=== PATIENT | female | born 1980 | race American Indian/Alaskan Native ===

== ENCOUNTER 2016-11-09 13:21 | Emergency (ER) | payer SELFPAY ==
--- NOTE | 2016-11-09 14:50 | Emergency Department Report ---
Chief Complaint: Syncope Stated Complaint: SYNCOPE/EMESIS BLOOD/PREG Time Seen by Provider: 11/09/16 14:40 - HPI History of Present Illness: Patient here reports that she had a positive home test 3 days ago. She reports that she's feeling weak and dizzy and that she fainted at the clinic this morning. Weakness and dizzy 3 days. She vomited 3 today. Denies any diarrhea. She is nauseous. Denies any fever and denies any pain. No Abdominal pain. Vaginal bleeding or discharge. Denies any urinary burning frequency or urgency. Menstrual period was 09/24/2016 - ROS Review of Systems: All systems are negative unless stated in HPI above. - Exam Vital Signs: Vital Signs 11/09/16 14:24 Temperature 97.3 F L Pulse Rate 68 Respiratory 16 Rate Blood Pressure 111/76 O2 Sat by Pulse 100 Oximetry Physical Exam: Gen: This is a 35-year-old female well-nourished well-developed in no acute distress. LUNGS: CTAB. Normal work of breathing CV:S1S2. RRR GI:NTTP in all Quadrants. NL bowel sounds in all quadrants. no cva tenderness. MSE screening note: Focused history and physical exam performed. Due to findings the following was ordered:see mdm ED Medical Decision Making - Medical Decision Making Medical decision making: Patient seen by provider in triage area. Appropriate protocol activated and patient to main ED to be seen by physician. ED Disposition for MSE Condition: Stable
[2016-11-09 15:16] LABS: Basophils % (Auto) 0.5 % (0.0-1.8); Eosinophils % (Auto) 0.8 % (0.0-4.3); Hemoglobin 10.2 gm/dl (10.1-14.3); Mean Corpuscular HGB Conc 31 % (30-34); Mean Corpuscular Volume 72 fl (79-97); Platelet Count 375 K/mm3 (140-440); Red Blood Count 4.61 M/mm3 (3.65-5.03); White Blood Count 7.5 K/mm3 (4.5-11.0)
[2016-11-09 15:21] LABS: Mean Corpuscular Hemoglobin 22 pg (28-32); Red Cell Distribution Width 20.9 % (13.2-15.2)
[2016-11-09 15:34] LABS: Alanine Aminotransferase 8 units/L (7-56); Albumin 4.2 g/dL (3.9-5); Alkaline Phosphatase 86 units/L (35-129); Bilirubin,Total 0.4 mg/dL (0.1-1.2); Blood Urea Nitrogen 8 mg/dL (7-17); Calcium 9.5 mg/dL (8.4-10.2); Carbon Dioxide 19 mmol/L (22-30); Chloride 94.3 mmol/L (98-107); Glucose 77 mg/dL (65-100); Potassium 3.8 mmol/L (3.6-5.0); Sodium 135 mmol/L (137-145); Total Protein 8.5 g/dL (6.3-8.2)
[2016-11-09 15:37] LABS: Anion Gap 26 mmol/L
[2016-11-09 16:26] LABS: Bacteria,Urine 1+ /HPF (Negative); Bilirubin,Urine NEG (Negative); Blood,Urine NEG (Negative); Ketones,Urine 80 mg/dL (Negative); Leukocyte Esterase,Urine NEG (Negative); Mucus,Urine FEW /HPF; Nitrite,Urine NEG (Negative); Urobilinogen,Urine < 2.0 mg/dL (<2.0); WBC,Urine < 1.0 /HPF (0.0-6.0)
--- NOTE | 2016-11-09 20:34 | Emergency Department Report ---
ED General Adult HPI - General Chief complaint: Syncope Stated complaint: SYNCOPE/EMESIS BLOOD/PREG Time Seen by Provider: 11/09/16 14:49 Source: patient, RN notes reviewed Mode of arrival: Wheelchair Limitations: No Limitations - History of Present Illness Initial comments: This is a 35-year-old female, previously unknown to me. She is 7, para 1. Last menstrual period is November 01. Patient denies chronic medical conditions. She admits to recreational consumption of marijuana. She last consumed marijuana on November 01, which is when she found out she was . Patient presents to the ER complaining of syncope, and loss of consciousness. It started at 1:00 this afternoon, and was sudden. Patient reports that the past 4-5 days, she has had intractable nausea and vomiting, and inability to tolerate liquid and solid feeds. She reports an unintentional weight loss. Prior to the event, she denies chest pain, shortness of breath, headache, neck pain. She is not certain if she hit her head. She is still nauseous. There is no abdominal pain. There is no chest pain. There is no leg pain. There is no leg swelling. No recent trips greater than 4 hours. No recent hospital admissions. No vaginal bleeding. No shortness of breath. -: Sudden Severity scale (0 -10): 8 Consistency: now resolved Improves with: none Worsens with: none Associated Symptoms: loss of appetite, malaise, nausea/vomiting, syncope, weakness. denies: chest pain, cough, fever/chills, headaches - Related Data Previous Rx's Medication Instructions Recorded Last Taken Type Doxylamine/Pyridoxine HCl 1 each PO QHS PRN #30 tablet. 11/10/16 Unknown Rx [Leonardo Grant 10-10 mg Tablet] Vit W-Ca,Fe,FA(<1 mg) 1 each PO QDAY #30 tablet 11/10/16 Unknown Rx [ Vitamins] Allergies Allergy/AdvReac Type Severity Reaction Status Date / Time No Known Allergies Allergy Verified 11/09/16 14:21 ED Review of Systems ROS: Stated complaint: SYNCOPE/EMESIS BLOOD/PREG Other details as noted in HPI Constitutional: malaise. denies: fever Eyes: denies: vision change ENT: denies: epistaxis Respiratory: see HPI Cardiovascular: syncope. denies: chest pain Gastrointestinal: nausea, vomiting Genitourinary: denies: dysuria Musculoskeletal: as per HPI Skin: as per HPI Neurological: as per HPI Psychiatric: as per HPI ED Past Medical Hx - Past Medical History Previous Medical History?: No - Surgical History Additional Surgical History: x1, D&Cx2 - Social History Smoking Status: Never Smoker Substance Use Type: None - Medications Home Medications: Home Medications Medication Instructions Recorded Confirmed Last Taken Type Doxylamine/Pyridoxine HCl 1 each PO QHS PRN #30 tablet. 11/10/16 Unknown Rx [Diclegis Dr 10-10 mg Tablet] Vit W-Ca,Fe,FA(<1 mg) 1 each PO QDAY #30 tablet 11/10/16 Unknown Rx [ Vitamins] ED Physical Exam - General Limitations: No Limitations General appearance: alert, in no apparent distress - Head Head exam: Present: atraumatic, normocephalic - Eye Eye exam: Present: normal appearance, EOMI. Absent: nystagmus - ENT ENT exam: Present: normal exam, normal orophraynx, mucous membranes moist, TM's normal bilaterally, normal external ear exam - Neck Neck exam: Present: normal inspection, full ROM. Absent: tenderness, meningismus - Respiratory Respiratory exam: Present: normal lung sounds bilaterally. Absent: respiratory distress, wheezes, rales, rhonchi, stridor, chest wall tenderness - Cardiovascular Cardiovascular Exam: Present: regular rate, normal rhythm, normal heart sounds. Absent: bradycardia, tachycardia, irregular rhythm, systolic murmur, diastolic murmur, rubs, gallop - GI/Abdominal GI/Abdominal exam: Present: soft, normal bowel sounds. Absent: distended, tenderness, guarding, rebound, rigid, pulsatile mass - Extremities Exam Extremities exam: Present: normal inspection, full ROM, normal capillary refill. Absent: tenderness, pedal edema, joint swelling, calf tenderness - Back Exam Back exam: Present: normal inspection, full ROM. Absent: tenderness, CVA tenderness (R), CVA tenderness (L), muscle spasm, paraspinal tenderness, vertebral tenderness - Neurological Exam Neurological exam: Present: alert, oriented X3, normal gait ( There is no pass pointing. Normal [id number]. Negative pronator drift.), other (Extraocular movements intact. Tongue midline. No facial droop. Facial sensation intact to light touch in the V1, V2, V3 distribution bilaterally. 5 and 5 strength in 4 extremities.. Sensation is intact to light touch in 4 extremities.). Absent : motor sensory deficit - Psychiatric Psychiatric exam: Present: normal affect, normal mood - Skin Skin exam: Present: warm, dry, intact, normal color. Absent: rash ED Course Vital Signs 11/09/16 11/09/16 11/09/16 14:24 17:56 19:06 Temperature 97.3 F L Pulse Rate 68 66 Respiratory 16 16 Rate Blood Pressure 111/76 Blood Pressure 111/64 [Left] O2 Sat by Pulse 100 100 100 Oximetry 11/09/16 11/09/16 11/09/16 19:07 19:11 19:15 Temperature Pulse Rate Respiratory Rate Blood Pressure 126/75 126/75 113/66 Blood Pressure [Left] O2 Sat by Pulse 100 100 Oximetry 11/09/16 11/09/16 11/09/16 19:21 19:23 19:25 Temperature Pulse Rate Respiratory Rate Blood Pressure 113/66 113/66 113/66 Blood Pressure [Left] O2 Sat by Pulse 100 100 100 Oximetry 11/09/16 11/09/16 11/09/16 19:30 19:35 19:41 Temperature Pulse Rate Respiratory Rate Blood Pressure 115/76 126/75 126/75 Blood Pressure [Left] O2 Sat by Pulse 100 99 Oximetry 11/09/16 11/09/16 11/09/16 19:45 19:51 19:55 Temperature Pulse Rate Respiratory Rate Blood Pressure 125/74 125/74 125/74 Blood Pressure [Left] O2 Sat by Pulse 100 100 100 Oximetry 11/09/16 11/09/16 11/09/16 20:00 20:05 20:11 Temperature Pulse Rate Respiratory Rate Blood Pressure 131/65 113/66 113/66 Blood Pressure [Left] O2 Sat by Pulse 100 100 100 Oximetry 11/09/16 11/09/16 11/09/16 20:15 20:21 20:25 Temperature Pulse Rate Respiratory Rate Blood Pressure 123/66 123/66 123/66 Blood Pressure [Left] O2 Sat by Pulse 100 100 100 Oximetry 11/09/16 11/09/16 11/09/16 20:37 20:41 20:45 Temperature Pulse Rate Respiratory Rate Blood Pressure 131/65 131/65 131/65 Blood Pressure [Left] O2 Sat by Pulse 100 100 100 Oximetry 11/09/16 11/09/16 11/09/16 20:51 20:55 21:01 Temperature Pulse Rate Respiratory Rate Blood Pressure 131/65 131/65 131/65 Blood Pressure [Left] O2 Sat by Pulse 100 100 100 Oximetry 11/09/16 11/09/16 11/09/16 21:05 21:11 21:15 Temperature Pulse Rate Respiratory Rate Blood Pressure 123/66 123/66 123/66 Blood Pressure [Left] O2 Sat by Pulse 100 100 100 Oximetry 11/09/16 11/09/16 11/09/16 21:21 21:25 21:31 Temperature Pulse Rate 83 Respiratory Rate Blood Pressure 123/66 123/66 123/66 Blood Pressure [Left] O2 Sat by Pulse 100 100 100 Oximetry 11/09/16 11/09/16 11/09/16 21:35 21:41 21:45 Temperature Pulse Rate Respiratory Rate Blood Pressure 123/66 123/66 123/66 Blood Pressure [Left] O2 Sat by Pulse 83 L 99 100 Oximetry 11/09/16 11/09/16 11/09/16 21:51 21:55 22:01 Temperature Pulse Rate Respiratory Rate Blood Pressure 123/66 123/66 123/66 Blood Pressure [Left] O2 Sat by Pulse 100 99 100 Oximetry 11/09/16 11/09/16 11/09/16 22:05 22:10 22:17 Temperature Pulse Rate Respiratory Rate Blood Pressure 123/66 123/66 123/66 Blood Pressure [Left] O2 Sat by Pulse 100 100 100 Oximetry 11/09/16 22:21 Temperature Pulse Rate Respiratory Rate Blood Pressure 123/66 Blood Pressure [Left] O2 Sat by Pulse 99 Oximetry - Reevaluation(s) Reevaluation #1: 11/09/16 21:50 Differential diagnosis: Nausea and vomiting of , hyperemesis gravidarum , arrhythmia, pulmonary embolus, nausea and vomiting related to cannabis use, ectopic Assessment and plan: 35-year-old female with sudden episode of syncope. I think the most likely etiology for the patient's episode is nausea and vomiting , and relative volume depletion. She is clinically sober now, with a GCS of 15 , and an NIH score of 0.Patient is clinically sober at this time. The cervical spine is cleared through nexus and togolese c spine rule There is no chest pain, there is no shortness of breath, and beside her being , there are no pulmonary embolus or DVT risk factors. She is resting comfortably at this time. Transabdominal/transvaginal ultrasound are ordered. D-dimer is ordered. Urine toxicology screen demonstrates presence of marijuana, but patient is clinically sober, and reports she has not consumed marijuana since November 01. Her EKG is morphologically abnormal without prior for comparison. Given her numerous T-wave abnormalities, a d-dimer is currently pending. However, I find the patient to be low risk by well's criteria. I have discussed her abnormal EKG with the weatherization field technician iron miner, Dr. Gallegos. Dr. Gallegos states the patient can follow-up in the office in the next few days for her abnormal EKG, assuming her ER workup is unremarkable. No lower abdominal pain, no lower abdominal rebound, guarding or tenderness. Therefore do not think the patient requires a pelvic exam. Ultrasound is pending. Reevaluation #2: 11/10/16 01:22 Patient's d-dimer is negative. I have reassessed the patient multiple times while she has been in the emergency department. No episodes of syncope. No episodes of vomiting. She feels much improved. Ultrasound demonstrates appropriate intrauterine . Of note, the patient had a prolonged stay in the emergency department because it took a very long time for ultrasound to be performed, and for her ultrasound interpreted. Nevertheless, I believe she is suitable for discharge at this time. She will be started on vitamins and as needed nausea medication. She is instructed to discontinue marijuana consumption, follow-up with TECHNOLOGY LAB TEACHER, follow-up with cardiology. Return precautions are extensively reviewed. ED Medical Decision Making - Lab Data Result diagrams: 11/09/16 14:57 11/09/16 14:57 Vital Signs 11/09/16 11/09/16 11/09/16 14:24 17:56 19:06 Temperature 97.3 F L Pulse Rate 68 66 Respiratory 16 16 Rate Blood Pressure 111/76 Blood Pressure 111/64 [Left] O2 Sat by Pulse 100 100 100 Oximetry 11/09/16 11/09/16 11/09/16 19:11 19:15 19:21 Temperature Pulse Rate Respiratory Rate Blood Pressure 126/75 113/66 113/66 Blood Pressure [Left] O2 Sat by Pulse 100 100 100 Oximetry 11/09/16 21:31 Temperature Pulse Rate 83 Respiratory Rate Blood Pressure Blood Pressure [Left] O2 Sat by Pulse Oximetry Lab Results 11/09/16 11/09/16 11/09/16 Range/Units 14:32 14:57 14:57 WBC 7.5 (4.5-11.0) K/mm3 RBC 4.61 (3.65-5.03) M/mm3 Hgb 10.2 (10.1-14.3) gm/dl Hct 33.0 (30.3-42.9) % MCV 72 L (79-97) fl MCH 22 L (28-32) pg MCHC 31 (30-34) % RDW 20.9 H (13.2-15.2) % Plt Count 375 (140-440) K/mm3 Lymph % (Auto) 15.1 (13.4-35.0) % [place] % (Auto) 9.5 H (0.0-7.3) % Eos % (Auto) 0.8 (0.0-4.3) % Baso % (Auto) 0.5 (0.0-1.8) % Lymph # 1.1 L (1.2-5.4) K/mm3 [place] # 0.7 (0.0-0.8) K/mm3 Eos # 0.1 (0.0-0.4) K/mm3 Baso # 0.0 (0.0-0.1) K/mm3 Seg Neutrophils % 74.1 H (40.0-70.0) % Seg Neutrophils # 5.6 (1.8-7.7) K/mm3 PT (12.2-14.9) Sec. INR (0.87-1.13) D-Dimer (0-234) ng/mlDDU Sodium 135 L (137-145) mmol/L Potassium 3.8 (3.6-5.0) mmol/L Chloride 94.3 L (98-107) mmol/L Carbon Dioxide 19 L (22-30) mmol/L Anion Gap 26 mmol/L BUN 8 (7-17) mg/dL Creatinine 0.5 L (0.7-1.2) mg/dL Estimated GFR > 60 ml/min BUN/Creatinine Ratio 16.00 % Glucose 77 (65-100) mg/dL POC Glucose 65 L (70-105) Calcium 9.5 (8.4-10.2) mg/dL Total Bilirubin 0.4 (0.1-1.2) mg/dL AST 15 (5-40) units/L ALT 8 (7-56) units/L Alkaline Phosphatase 86 (35-129) units/L Total Protein 8.5 H (6.3-8.2) g/dL Albumin 4.2 (3.9-5) g/dL Albumin/Globulin Ratio 1.0 % HCG, Qual (Negative) Urine Color (Yellow) Urine Turbidity (Clear) Urine pH (5.0-7.0) Ur Specific [place] (1.003-1.030) Urine Protein (Negative) mg/dL Urine Glucose (UA) (Negative) mg/dL Urine Ketones (Negative) mg/dL Urine Blood (Negative) Urine Nitrite (Negative) Urine Bilirubin (Negative) Urine Urobilinogen (<2.0) mg/dL Ur Leukocyte Esterase (Negative) Urine WBC (Auto) (0.0-6.0) /HPF Urine RBC (Auto) (0.0-6.0) /HPF U Epithel Cells (Auto) (0-13.0) /HPF Urine Bacteria (Auto) (Negative) /HPF Urine Mucus /HPF U Marijuana (THC) Screen 11/09/16 11/09/16 11/09/16 Range/Units 14:57 16:07 16:07 WBC (4.5-11.0) K/mm3 RBC (3.65-5.03) M/mm3 Hgb (10.1-14.3) gm/dl Hct (30.3-42.9) % MCV (79-97) fl MCH (28-32) pg MCHC (30-34) % RDW (13.2-15.2) % Plt Count (140-440) K/mm3 Lymph % (Auto) (13.4-35.0) % [place] % (Auto) (0.0-7.3) % Eos % (Auto) (0.0-4.3) % Baso % (Auto) (0.0-1.8) % Lymph # (1.2-5.4) K/mm3 [place] # (0.0-0.8) K/mm3 Eos # (0.0-0.4) K/mm3 Baso # (0.0-0.1) K/mm3 Seg Neutrophils % (40.0-70.0) % Seg Neutrophils # (1.8-7.7) K/mm3 PT (12.2-14.9) Sec. INR (0.87-1.13) D-Dimer (0-234) ng/mlDDU Sodium (137-145) mmol/L Potassium (3.6-5.0) mmol/L Chloride (98-107) mmol/L Carbon Dioxide (22-30) mmol/L Anion Gap mmol/L BUN (7-17) mg/dL Creatinine (0.7-1.2) mg/dL Estimated GFR ml/min BUN/Creatinine Ratio % Glucose (65-100) mg/dL POC Glucose (70-105) Calcium (8.4-10.2) mg/dL Total Bilirubin (0.1-1.2) mg/dL AST (5-40) units/L ALT (7-56) units/L Alkaline Phosphatase (35-129) units/L Total Protein (6.3-8.2) g/dL Albumin (3.9-5) g/dL Albumin/Globulin Ratio % HCG, Qual Positive (Negative) Urine Color Yellow (Yellow) Urine Turbidity Clear (Clear) Urine pH 6.0 (5.0-7.0) Ur Specific [place] 1.026 (1.003-1.030) Urine Protein 100 mg/dl (Negative) mg/dL Urine Glucose (UA) Neg (Negative) mg/dL Urine Ketones 80 (Negative) mg/dL Urine Blood Neg (Negative) Urine Nitrite Neg (Negative) Urine Bilirubin Neg (Negative) Urine Urobilinogen < 2.0 (<2.0) mg/dL Ur Leukocyte Esterase Neg (Negative) Urine WBC (Auto) < 1.0 (0.0-6.0) /HPF Urine RBC (Auto) 5.0 (0.0-6.0) /HPF U Epithel Cells (Auto) 9.0 (0-13.0) /HPF Urine Bacteria (Auto) 1+ (Negative) /HPF Urine Mucus Few /HPF U Marijuana (THC) Screen Presumptive positive 11/09/16 11/09/16 Range/Units 20:52 20:52 WBC (4.5-11.0) K/mm3 RBC (3.65-5.03) M/mm3 Hgb (10.1-14.3) gm/dl Hct (30.3-42.9) % MCV (79-97) fl MCH (28-32) pg MCHC (30-34) % RDW (13.2-15.2) % Plt Count (140-440) K/mm3 Lymph % (Auto) (13.4-35.0) % [place] % (Auto) (0.0-7.3) % Eos % (Auto) (0.0-4.3) % Baso % (Auto) (0.0-1.8) % Lymph # (1.2-5.4) K/mm3 [place] # (0.0-0.8) K/mm3 Eos # (0.0-0.4) K/mm3 Baso # (0.0-0.1) K/mm3 Seg Neutrophils % (40.0-70.0) % Seg Neutrophils # (1.8-7.7) K/mm3 PT 13.1 (12.2-14.9) Sec. INR 1.00 (0.87-1.13) D-Dimer < 135 (0-234) ng/mlDDU Sodium (137-145) mmol/L Potassium (3.6-5.0) mmol/L Chloride (98-107) mmol/L Carbon Dioxide (22-30) mmol/L Anion Gap mmol/L BUN (7-17) mg/dL Creatinine (0.7-1.2) mg/dL Estimated GFR ml/min BUN/Creatinine Ratio % Glucose (65-100) mg/dL POC Glucose (70-105) Calcium (8.4-10.2) mg/dL Total Bilirubin (0.1-1.2) mg/dL AST (5-40) units/L ALT (7-56) units/L Alkaline Phosphatase (35-129) units/L Total Protein (6.3-8.2) g/dL Albumin (3.9-5) g/dL Albumin/Globulin Ratio % HCG, Qual (Negative) Urine Color (Yellow) Urine Turbidity (Clear) Urine pH (5.0-7.0) Ur Specific [place] (1.003-1.030) Urine Protein (Negative) mg/dL Urine Glucose (UA) (Negative) mg/dL Urine Ketones (Negative) mg/dL Urine Blood (Negative) Urine Nitrite (Negative) Urine Bilirubin (Negative) Urine Urobilinogen (<2.0) mg/dL Ur Leukocyte Esterase (Negative) Urine WBC (Auto) (0.0-6.0) /HPF Urine RBC (Auto) (0.0-6.0) /HPF U Epithel Cells (Auto) (0-13.0) /HPF Urine Bacteria (Auto) (Negative) /HPF Urine Mucus /HPF U Marijuana (THC) Screen - EKG Data When compared to previous EKG there are: previous EKG unavailable 11/09/16 21:54 Normal sinus, 66 bpm, normal axis, normal intervals, T-wave inversions, 2, 3, V2 , V3, V4, V5 and V6. Abnormal EKG, not morphologically consistent with STEMI. Patient not having chest pain. - Radiology Data Radiology results: report reviewed, image reviewed ultrasound demonstrates appropriate intrauterine , fibroid uterus Critical care attestation.: If time is entered above; I have spent that time in minutes in the direct care of this critically ill patient, excluding procedure time. ED Disposition Clinical Impression: Disposition: DISCHARGED TO HOME OR SELFCARE Is pt being admited?: No Does the pt Need Aspirin: No Condition: Stable Instructions: Syncope (ED), Hyperemesis Gravidarum (ED) Additional Instructions: Discontinue consumption of marijuana. It is bad for your health. Take the vitamins, nausea medication as directed. EKG demonstrated nonspecific abnormalities. I recommend that you follow-up with a weatherization field technician within the next 3-[address] Gallegos is a local weatherization field technician. You may contact her office tomorrow at [phone]. I recommend that you do not drive cars or operate motor vehicles until cleared by either primary care doctor or cardiology. Take the nausea medication, vitamins as directed. Follow up with an OB /WRISTER doctor within the next week. Dr. Hein is a local TECHNOLOGY LAB TEACHER doctor. Return to the ER right away with pain, intractable nausea or vomiting, fevers or chills, inability to tolerate liquid feeds. Follow up with an TECHNOLOGY LAB TEACHER doctor within the next week. Prescriptions: Doxylamine/Pyridoxine HCl [Leonardo Grant 10-10 mg Tablet] 1 each PO QHS PRN #30 tablet. PRAdriana Reason: Nausea Vit W-Ca,Fe,FA(<1 mg) [ Vitamins] 1 each PO QDAY #30 tablet Referrals: PRIMARY CARE, [Primary Care Provider] - 3-5 Days BEN GALLEGOS MD [Staff Physician] - 3-5 Days RAMON HEIN MD [Staff Physician] - 3-5 Days
[2016-11-09] MEDS ORDERED: ZOFRAN IV ONE (21:08)
[2016-11-09 21:33] LABS: Urine Drugs of Abuse Note Disclamer
[2016-11-09] MEDS ORDERED: D5/0.45NS 1,000 ML IV SCH (22:00)
[2016-11-09 22:29] VITALS: BP 123/66
--- NOTE | 2016-11-10 00:41 | Ultrasound Report ---
FINAL REPORT EXAM: US OB TRANSVAGINAL HISTORY: syncope TECHNIQUE: Transabdominal and transvaginal sonography of the pelvis. PRIORS: None. FINDINGS: There is a single, live intrauterine . Ultrasound estimated gestational age is 7 weeks 1 day. Ultrasound estimated date of delivery is 27 June 2017. heart motion is detected. Uterus enlarged and contains multiple fibroids, largest partially calcified and located in the right corpus region measuring 4.7 x 4.3 cm. Remainder of uterus and adnexa are grossly unremarkable. IMPRESSION: 1. Single, live intrauterine . 2. Leiomyomatous change in the uterus.
--- NOTE | 2016-11-10 00:42 | Ultrasound Report ---
FINAL REPORT EXAM: US OB < = 14 WEEKS FETUS HISTORY: syncope TECHNIQUE: Transabdominal and transvaginal sonography of the pelvis. PRIORS: None. FINDINGS: There is a single, live intrauterine . Ultrasound estimated gestational age is 7 weeks 1 day. Ultrasound estimated date of delivery is 27 June 2017. heart motion is detected. Uterus enlarged and contains multiple fibroids, largest partially calcified and located in the right corpus region measuring 4.7 x 4.3 cm. Remainder of uterus and adnexa are grossly unremarkable. IMPRESSION: 1. Single, live intrauterine . 2. Leiomyomatous change in the uterus.
== END 2016-11-10 01:32 | disposition home or self-care (01) ==
LOC: ED 13:21
DX: O21.0 Mild hyperemesis gravidarum (principal); O26.891 Other specified pregnancy related conditions, first trimester; R55 Syncope and collapse; R53.81 Other malaise; R11.0 Nausea; Z3A.01 Less than 8 weeks gestation of pregnancy; Z98.890 Other specified postprocedural states
CPT/HCPCS: 36415; 76801; 76817; 80053; 81001; 82962; 83735; 84484; 84702; 84703; 85025; 85379; 85610; 86850; 86900; 86901; 93005; 93010; 96361; 96374; 99284; G0479; J2405; 80307

== ENCOUNTER 2017-02-16 13:05 | Outpatient (CLI) | payer MEDICAID ==
[2017-02-16 14:50] LABS: Bilirubin,Urine NEG (Negative); Blood,Urine SM (Negative); Ketones,Urine NEG (Negative); Leukocyte Esterase,Urine NEG (Negative); Nitrite,Urine NEG (Negative); Protein,Urine <15 mg/dL mg/dL (Negative); Urobilinogen,Urine < 2.0 mg/dL (<2.0); WBC,Urine < 1.0 /HPF (0.0-6.0)
[2017-02-16] MEDS ORDERED: LACTATED RINGERS 500 ML IV ONE (15:13)
[2017-02-16] MEDS ORDERED: TYLENOL #3 PO PRN (15:17)
--- NOTE | 2017-02-19 07:38 | Ultrasound Report ---
ULTRASOUND OB LIMITED History: Unable to identify heart tones Technique: Transabdominal ultrasound with Doppler interrogation. Gestation: Single Position: Transverse, head to maternal left Heart Rate: 158 BPM Comment: Multiple large uterine fibroids are identified measuring up to 7 cm in diameter.
== END 2017-02-16 15:56 | disposition home or self-care (01) ==
LOC: TRG 13:05
PROVIDERS: ATTEND Obstetrics & Gynecology
DX: O09.522 Supervision of elderly multigravida, second trimester (principal); O47.02 False labor before 37 completed weeks of gestation, second trimester; Z3A.21 21 weeks gestation of pregnancy
CPT/HCPCS: 76815; 81001

== ENCOUNTER 2017-05-11 13:35 | Outpatient (CLI) | payer MEDICAID ==
[2017-05-11 15:12] VITALS: BP 117/66
[2017-05-11 15:35] LABS: Bacteria,Urine 1+ /HPF (Negative); Bilirubin,Urine NEG (Negative); Blood,Urine NEG (Negative); Ketones,Urine NEG (Negative); Leukocyte Esterase,Urine NEG (Negative); Mucus,Urine FEW /HPF; Nitrite,Urine NEG (Negative); Protein,Urine <15 mg/dL mg/dL (Negative); Urobilinogen,Urine < 2.0 mg/dL (<2.0)
[2017-05-11] MEDS ORDERED: LACTATED RINGERS 500 ML IV ONE (16:00)
== END 2017-05-11 16:50 | disposition home or self-care (01) ==
LOC: TRG 13:35
PROVIDERS: ATTEND Obstetrics & Gynecology
DX: O09.523 Supervision of elderly multigravida, third trimester (principal); O47.03 False labor before 37 completed weeks of gestation, third trimester; Z3A.31 31 weeks gestation of pregnancy
CPT/HCPCS: 59025; 81001

== ENCOUNTER 2017-06-22 22:48 | Inpatient (IN) | payer MEDICAID ==
[2017-06-23] MEDS ORDERED: LACTATED RINGERS 1,000 ML ONE (00:14)
[2017-06-23] MEDS ORDERED: AMBIEN PO PRN (01:16)
[2017-06-23] MEDS ORDERED: LACTATED RINGERS 1,000 ML IV SCH (01:16)
[2017-06-23] MEDS ORDERED: SUBLIMAZE IV ONE (01:16)
[2017-06-23 01:33] LABS: Hematocrit 35.5 % (30.3-42.9); Hemoglobin 11.8 gm/dl (10.1-14.3); Mean Corpuscular HGB Conc 33 % (30-34); Mean Corpuscular Hemoglobin 30 pg (28-32); Mean Corpuscular Volume 92 fl (79-97); Platelet Count 211 K/mm3 (140-440); Red Blood Count 3.88 M/mm3 (3.65-5.03); Red Cell Distribution Width 16.3 % (13.2-15.2); White Blood Count 7.5 K/mm3 (4.5-11.0)
[2017-06-23] MEDS ORDERED: REGLAN IV ONE (07:28)
[2017-06-23] MEDS ORDERED: BICITRA PO ONE (07:28)
[2017-06-23] MEDS ORDERED: PEPCID IV ONE (07:28)
[2017-06-23] MEDS ORDERED: ANCEF/STERILE WATER 2 GM/20 ML 2 GM/20 ML SYRINGE IV NR (08:00)
--- NOTE | 2017-06-23 09:06 | History and Physical Report ---
History of Present Illness Date of examination: 06/22/17 Date of admission: 06/22/17 23:49 Chief complaint: I haven't felt the baby move. History of present illness: Patient is a 36 year old who presents at 38.4 week with decreased movement. She denies cramping or bleeding. Bedside emergent ultrasound revealed absent heart tones and no movement. course was complicated by advanced maternal age and previous x1. Patient received care at [facility]. records are not available at this time for review. Past History Past Medical History: no pertinent history Past Surgical History: section - Obstetrical History : 7 Medications and Allergies Allergies Allergy/AdvReac Type Severity Reaction Status Date / Time No Known Allergies Allergy Verified 11/09/16 14:21 Home Medications Medication Instructions Recorded Confirmed Last Taken Type Doxylamine/Pyridoxine HCl 1 each PO QHS PRN #30 tablet. 11/10/16 Unknown Rx [Leonardo Grant 10-10 mg Tablet] Vit W-Ca,Fe,FA(<1 mg) 1 each PO QDAY #30 tablet 11/10/16 Unknown Rx [ Vitamins] Active Meds: Active Medications Lactated Ringer's (Lactated Ringers) 1,000 mls @ 125 mls/hr IV DIRECT GLORIA Last Admin: 06/23/17 07:45 Dose: 125 mls/hr Cefazolin Sodium (Ancef/Sterile Water 2 Gm/20 Ml) 2 gm in 20 mls @ 80 mls/hr IV PREOP NR PRN Reason: Protocol Stop: 06/23/17 23:00 Oxytocin/Sodium Chloride (Pitocin/Ns 20 Unit/1000ml Drip) 20 units in 1,000 mls @ 0 mls/hr IV TITR GLORIA PRN Reason: As Directed Zolpidem Tartrate (Ambien) 10 mg PO QHS PRN PRN Reason: Insomnia Last Admin: 06/23/17 02:02 Dose: 10 mg Review of Systems All systems: negative Genitourinary: contractions (decreased movement) - Vital Signs Vital signs: Vital Signs Pulse Pulse Ox 96 H 98 06/22/17 23:08 06/22/17 23:08 Temp Pulse Resp BP Pulse Ox 98.2 F 100 H 18 132/78 98 06/23/17 07:35 06/23/17 08:26 06/23/17 07:35 06/23/17 08:26 06/22/17 23:39 - Physical Exam Breasts: Cardiovascular: Regular rate, Normal S1, Normal S2 Lungs: Positive: Clear to auscultation, Normal air movement Abdomen: Positive: normal appearance, soft, normal bowel sounds. Negative: distention, tenderness Genitourinary (Female): Positive: normal external genitalia, normal perenium Vulva: both: normal Vagina: Positive: normal moisture. Negative: discharge Cervix: Negative: lesion, discharge Uterus: Positive: normal size, normal contour Adnexa: both: normal Anus/Rectum: Positive: normal perianal skin, heme negative. Negative: rectal mass, hemorrhoids Extremities: Deep Tendon Reflex Grade: Normal +2 - Obstetrical FHR: other Results Result Diagrams: 06/23/17 00:30 Abnormal lab results 06/23/17 Range/Units 00:30 RDW 16.3 H (13.2-15.2) % All other labs normal. Assessment and Plan Patient is a with term IUFD and previous . Discussed choice of anesthesia with patient and family. Patient has decided to proceed with spinal/ awake anesthesia. Consents signed and placed on chart. Will proceed with c- section.
[2017-06-23] MEDS ORDERED: VERSED ONE (09:12)
[2017-06-23] MEDS ORDERED: ANCEF/STERILE WATER 2 GM/20 ML IV ONE (09:25)
[2017-06-23] MEDS ORDERED: WATER FOR IRRIG STERILE IR ONE (09:25)
[2017-06-23] MEDS ORDERED: NACL 0.9% IR ONE (09:25)
[2017-06-23] MEDS ORDERED: NEO SYNEPHRINE/NS Syringe(OR USE) IV ONE (09:30)
[2017-06-23] MEDS ORDERED: ZOFRAN ONE (09:39)
[2017-06-23] MEDS ORDERED: TORADOL ONE (09:39)
[2017-06-23] MEDS ORDERED: ePHEDrine SULFATE ONE (09:56)
[2017-06-23] MEDS: PITOCin/NS 20 UNIT/1000ML DRIP 20 UNITS/1,000 ML BAG IV SCH ×2 (10:00→13:32)
--- NOTE | 2017-06-23 10:48 | Operative Report ---
Operative Report Operative Report: The operative report for patient Fatmata Jeffers Date of service 06/23/2017 Preoperative diagnosis: Intrauterine at 38-3/7 weeks 2. Previous 1 3. IUFD Postoperative diagnosis: Same Procedure: Repeat low transverse section Surgeon: Dr. Shahnaz Bergeron EBL: 1000 Urine output: 50 IV fluids: 2000 Findings: Nonviable male in the vertex occiput anterior position. Weight 8 lbs. 12 oz. 3961 g Apgars 0 and 0]. Scant amniotic fluid. Multiple uterine fibroids of various sizes throughout the body of the uterus. Adhesions to the anterior abdominal wall from the uterus Specimens: Placenta Complications: None Procedure: The patient was admitted to the OR with IV running and in place. She was properly identified as herself. Her spinal was placed without difficulty. She was placed in the dorsal supine position with a leftward tilt. A Keene catheter was inserted. She was then prepped and draped in the normal sterile fashion. An Allis test was used to confirm adequate anesthesia. Once confirmed, the incision was made with the scalpel and carried to the underlying fascia using the scalpel and the Bovie. The fascia was incised in the midline and incision was extended bilaterally using the curved Field scissors. The fascia was then dissected from the underlying rectus muscles in a series of sharp and blunt dissection using the Field scissors. Muscles were in the in the midline sharply using Metzenbaum scissors and the peritoneum was entered into sharply using the scissors and scalpel. There were adhesions connecting the uterus to the anterior abdominal wall. These were taken down with both sharp and blunt dissection. An Celestine retractor was placed into the incision. A bladder blade was then placed into the incision to protect the bladder. Hysterotomy incision was then made in the scalpel. Upon uterine entry, the amniotic sac was ruptured for scant clear fluid. The was then delivered in the occiput anterior position. His body was limp and there was no movement .His mouth and nose were suctioned on the field. The cord was clamped and cut and he was handed to the waiting L& D personnel. The uterus was not exteriorized due to multiple fibroids. It was cleared of all clots and debris. The hysterotomy incision was then closed in a running locked fashion using 0 Vicryl. The abdomen was then copiously irrigated with warm normal saline. Following this the retractor was removed. At this point the muscles were reapproximated in the midline using individual sutures of 0 Vicryl. Following this the fascia was closed in a running fashion using 0 Vicryl. The subcutaneous tissue was then copiously irrigated. Skin was closed in a running fashion using 3-0 Monocryl. The sponge lap needle and instrument counts were correct 2. The patient tolerated the procedure well. She was taken to recovery in stable condition.
[2017-06-23 12:06] LABS: Urine Drugs of Abuse Note Disclamer
[2017-06-23] MEDS ORDERED: ZOFRAN IV PRN (13:09)
[2017-06-23] MEDS ORDERED: NARCAN 0.4 MG/1 ML IV PRN (13:09)
[2017-06-23] MEDS ORDERED: SODIUM CHLORIDE FLUSH SYRINGE 10 ML IV NR (13:09)
[2017-06-23] MEDS ORDERED: MYLICON PO PRN (13:09)
[2017-06-23] MEDS ORDERED: TUCKS PAD TP PRN (13:09)
[2017-06-23] MEDS ORDERED: PITOCin/NS 20 UNIT/1000ML DRIP 20 UNITS/1,000 ML BAG IV SCH (13:09)
[2017-06-23] MEDS ORDERED: LANSINOH TP PRN (13:09)
[2017-06-23] MEDS ORDERED: D5LR 1,000 ML IV SCH (13:09)
[2017-06-23] MEDS: TORADOL IV PRN ×2 (13:32→21:50)
[2017-06-23] MEDS: MORPHINE IV PRN (21:50)
[2017-06-23 23:27] LABS: Hematocrit 28.3 % (30.3-42.9); Hemoglobin 9.1 gm/dl (10.1-14.3)
[2017-06-24] MEDS: TORADOL IV PRN ×2 (03:05→17:12)
[2017-06-24] MEDS: MORPHINE IV PRN ×3 (03:32→15:26)
[2017-06-24] MEDS: PRENATAL VITAMIN PO SCH (09:09)
[2017-06-24] MEDS: FEOSOL PO SCH (09:10)
[2017-06-24] MEDS: PERCOCET 5/325 PO PRN (20:29)
[2017-06-24] MEDS: AMBIEN PO PRN (22:00)
--- NOTE | 2017-06-24 22:29 | Progress Note ---
Assessment and Plan POD 1 s/p rltcs for IUFD at 38+ weeks. Patient adjusting as well as can be expected after having lost a child. Pain is well controlled. Ambulating normally and tolerating a regular diet. Continue routine post op care. Subjective - Subjective Date of service: 06/24/17 Interval history: Patient is a 36 year old who presents at 38.4 week with decreased movement. She denies cramping or bleeding. Bedside emergent ultrasound revealed absent heart tones and no movement. course was complicated by advanced maternal age and previous x1. Patient received care at [facility]. records are not available at this time for review. She is currently pod 1 from a repea . Patient reports: appetite normal, voiding normally, pain well controlled, ambulating normally [place]: Objective - Vital Signs Latest vital signs: Vital Signs Temp Pulse Resp BP 06/24/17 20:29 18 06/24/17 19:30 98.6 F 88 16 158/86 06/24/17 17:00 98.5 F 106 H 18 135/73 06/24/17 12:00 98.0 F 98 H 18 128/78 06/24/17 08:55 98.5 F 78 20 116/68 06/24/17 04:00 98.1 F 82 20 118/65 06/24/17 00:30 98.0 F 82 20 130/69 Intake and Output 06/24/17 06/24/17 06/24/17 06:59 14:59 22:59 Intake Total 360 690 Output Total 800 Balance -440 690 Intake: Oral 360 440 Intake, Free Water 250 Output: Urine 800 Indwelling Catheter 800 Other: Total, Intake Amount 240 200 Total, Output Amount 800 # Voids Void 1 - Exam Breasts: Present: deferred Cardiovascular: Present: Regular rate, Normal S1, Normal S2 Lungs: Present: Clear to auscultation, Normal air movement Abdomen: Present: normal appearance, soft, normal bowel sounds Vulva: both: normal Uterus: Present: normal, firm, fundal height below umbilicus Extremities: Present: normal Deep Tendon Reflex Grade: Normal +2 Incision: Present: normal, intact, dressed - Labs Labs: Abnormal lab results 06/23/17 Range/Units 23:00 Hgb 9.1 L (10.1-14.3) gm/dl Hct 28.3 L D (30.3-42.9) %
--- NOTE | 2017-06-24 23:29 | Event Note ---
Date: 06/24/17 I received a call from [facility] OB Dr. Bergeron who made me aware that Mrs. Jeffers had an IUFD on Sunday and was C/sec on Sunday. Patient was very upset about her loss. Patient indicated that she had decreased movement on but did not call as advised by [facility] and myself on each visit. She stated that she came in on Sunday with no movement. Patient was seen in my clinic on Sunday and she stated that someone at [facility] had indicated that her scheduled c/sec was too late (27 June) and she needed to deliver earlier. I immediately called [facility] and spoke with [facility] Dr. Motta to discuss the timing of delivery and reviewing her dates in front of the couple. We decided that her early 10-11 weeks US would be used giving her the dates of EDC 30 June. Her scheduled repeat c/sec was scheduled for Sunday as Sunday scheduled c/sec would need to be done during the week and not on the weekend. The patient informed me that they had antepartum testing on Sunday and the tech told them that the fluid was low. Questions was asked "why did I not get delivered" I immediately called Dr. Parker ( head of [facility]) and spoke with Dr. Motta and after they reviewed her chart and scans it was noted that her fluid was lower than 10 previous OVIDIO and currently 7 which was not an indication of delivery nor characterized as oligohydramnios. Patient had a BPP on Sunday of 06/12. Patient states that she wish she had delivered earlier and I expressed my condolences and indicated if there was any indication for early delivery I would have proceeded quickly. Dr. Parker and Dr. Motta both indicated from [facility] there was no indication to delivery early. I spoke with Dr. Motta and he had reviewed literature from [facility] and Up to date and there is no indication for early delivery than 39-40 weeks in this case. I concluded my visit with my condolences for patient loss and if they needed anything I am available for any support that family may need.
[2017-06-25] MEDS: PERCOCET 5/325 PO PRN ×5 (00:25→20:55)
--- NOTE | 2017-06-25 07:45 | Ultrasound Report ---
ULTRASOUND OB FOLLOWUP History: well-being. Technique: Transabdominal ultrasound with Doppler interrogation. Comparison: 02/16/17. This examination is just presented to me for interpretation. Gestation: Single Position: Cephalic Amniotic Fluid: Decreased OVIDIO = 0.0 cm Placenta: Anterior Placental Grade: 2 Heart Rate: Not detected BPD: 9.2 cm = 37 w 2 d HC: 32.8 cm = 37 w 1 d AC: 33.5 cm = 37 w 3 d FL: 7.4 cm = 38 w 0 d HC/AC Ratio: 0.97 Estimated Weight: 3226 grams US Gest. Age = 37 w 3 d EDC: 07/10/17 Comment: No heart tones could be demonstrated consistent with demise.
--- NOTE | 2017-06-25 08:48 | Progress Note ---
Assessment and Plan A: POD#2 s/p repeat at 38 wks secondary to previous x 1 and IUFD; asymptomatic anemia, elevated blood pressure P: Routine postoperative care. PIH labs. Close clinical monitoring. Subjective - Subjective Date of service: 06/25/17 Principal diagnosis: s/p IUFD at 38 wks, s/p repeat section Interval history: Pt very upset about the loss of her baby. Minimal flatus. Patient reports: flatus, ambulating normally (minimally ), no appetite normal ( decreased appetite), no bowel movement, no nauseated [place]: Objective - Vital Signs Latest vital signs: Vital Signs Temp Pulse Resp BP 06/25/17 04:44 18 06/25/17 04:00 98.6 F 71 16 137/78 06/25/17 00:25 18 06/24/17 23:30 98.6 F 92 H 18 140/77 06/24/17 20:29 18 06/24/17 19:30 98.6 F 88 16 158/86 06/24/17 17:00 98.5 F 106 H 18 135/73 06/24/17 12:00 98.0 F 98 H 18 128/78 06/24/17 08:55 98.5 F 78 20 116/68 Intake and Output 06/24/17 06/25/17 06/25/17 22:59 06:59 14:59 Intake Total 690 600 Balance 690 600 Intake: Oral 440 300 Intake, Free Water 250 300 Other: Total, Intake Amount 200 200 # Voids Void 1 1 - Exam Breasts: Present: deferred Cardiovascular: Present: Regular rate Lungs: Present: Clear to auscultation Abdomen: Present: soft, distention (moderate ), abnormal bowel sounds ( hypoactive ) Uterus: Present: fundal height above umbilicus Extremities: Present: normal Incision: Present: intact
[2017-06-25] MEDS ORDERED: AMBIEN PO NR (09:39)
[2017-06-25 09:43] LABS: Hematocrit 27.5 % (30.3-42.9); Hemoglobin 9.2 gm/dl (10.1-14.3); Mean Corpuscular HGB Conc 34 % (30-34); Mean Corpuscular Hemoglobin 31 pg (28-32); Mean Corpuscular Volume 92 fl (79-97); Platelet Count 214 K/mm3 (140-440); Red Blood Count 2.98 M/mm3 (3.65-5.03)
[2017-06-25 10:02] LABS: Alanine Aminotransferase 12 units/L (7-56); Lactate Dehydrogenase 277 units/L (91-180); Uric Acid 5.3 mg/dL (3.5-7.6)
[2017-06-25] MEDS: MILK OF MAGNESIA PO SCH ×3 (10:28→21:34)
[2017-06-25] MEDS: MOTRIN PO PRN ×2 (10:29→16:38)
[2017-06-25 10:34] LABS: Bilirubin,Urine NEG (Negative); Blood,Urine LG (Negative); Ketones,Urine NEG (Negative); Leukocyte Esterase,Urine NEG (Negative); Mucus,Urine FEW /HPF; Nitrite,Urine NEG (Negative); Protein,Urine <15 mg/dL mg/dL (Negative); Urobilinogen,Urine < 2.0 mg/dL (<2.0)
--- NOTE | 2017-06-25 18:16 | Event Note ---
Date: 06/25/17 Late entry. Pt with elevated blood pressures. Presently denies PIH symptoms. Rule out HELLP labs. Begin magnesium sulfate for symptoms or severe range pressures. Continue to monitor closely.
[2017-06-26] MEDS: AMBIEN PO PRN ×2 (01:27→22:40)
[2017-06-26] MEDS: PERCOCET 5/325 PO PRN ×5 (01:32→20:39)
[2017-06-26] MEDS: MILK OF MAGNESIA PO SCH ×3 (04:09→21:00)
[2017-06-26] MEDS: MOTRIN PO PRN ×2 (08:05→16:12)
--- NOTE | 2017-06-26 09:00 | Progress Note ---
Assessment and Plan - Patient Problems (1) depression Current Visit: Yes Status: Acute Plan to address problem: patient experiencing difficulty with loss of mental health providers have been notified. monitor blood pressures closely (2) demise Current Visit: Yes Status: Acute Subjective - Subjective Date of service: 06/26/17 Principal diagnosis: s/p IUFD at 38 wks, s/p repeat section Interval history: By nursing report, the patient stated last night that she wanted to kill herself. Mental health providers have been notified. The patient has not made any attempts. Today she is very tearful and unable to speak. She denies any pain and has been tolerating a regular diet. Recently had some mildly elevated blood pressures. Patient reports: appetite normal, voiding normally, pain well controlled [place]: Objective - Vital Signs Latest vital signs: Vital Signs Temp Pulse Resp BP 06/26/17 07:47 98.6 F 95 H 18 169/83 06/26/17 04:15 98.4 F 86 20 138/73 06/26/17 01:32 20 06/26/17 00:37 88 18 120/70 06/26/17 00:00 98.8 F 88 20 141/70 06/25/17 20:55 18 06/25/17 20:00 98.8 F 91 H 20 133/64 06/25/17 17:19 97.7 F 84 20 140/92 06/25/17 16:38 20 06/25/17 16:37 20 06/25/17 11:30 99.3 F 84 20 134/80 06/25/17 10:29 20 06/25/17 10:28 20 Intake and Output 06/25/17 06/26/17 06/26/17 22:59 06:59 14:59 Intake Total 360 Balance 360 Intake: Oral 360 Other: Total, Intake Amount 120 # Voids Void 1 - Labs Labs: Abnormal lab results 06/25/17 06/25/17 Range/Units 09:26 09:26 RBC 2.98 L (3.65-5.03) M/mm3 Hgb 9.2 L (10.1-14.3) gm/dl Hct 27.5 L (30.3-42.9) % RDW 16.0 H (13.2-15.2) % Creatinine 0.6 L (0.7-1.2) mg/dL Lactate Dehydrogenase 277 H (91-180) units/L
--- NOTE | 2017-06-26 10:11 | Query-Anemia ---
Deacarly Carias___Lázaro Unger Date:____06/26/17 [employer]/CDS: Thaddeus / Jovani Phone#:___[phone] Exercise your independent professional judgment when responding to this query. Questions asked do not imply a particular answer is desired or expected. We greatly appreciate your clarification on this issue. Clinical Documentation States: A 36 Y/O/F, " who presents at 38.4 weeks with decreased movement. She denies cramping or bleeding."(H&P, SHAHNAZ RECIO MD, 06/23/17) The Operative report (Dr. Shahnaz Recio) states " Preoperative diagnosis: Intrauterine at 38-3/7 weeks, 2. Previous 1, 3. IUFD Procedure: Repeat low transverse section EBL: 1000 " Clinical Findings Show: 06/23 06/23 06/25 Hb 11.8 9.1 9.2 Hct 35.5 28.3 27.5 Treatment: Iron Supplements Vitamin Supplements Etiology: [ ] Anemia due to acute blood loss [ ] Anemia due to chronic blood loss [ ] Anemia secondary to ESRD [ ] Anemia secondary to neoplastic disease [ ] Iron deficiency anemia due to malabsorption [ ] GI Bleed from: [ ] Anemia of chronic disease ,Other: [ ] Precipitous Drop in Hemoglobin [ ] Precipitous Drop in Hematocrit [ ] Other: [ ] Unable to determine [ ] Comment/Explanation: Present on Admission: [ ] Yes (Y) [ ] Clinically undeterminable (W) [ ] No (N) Please also document response in your Progress Notes and/or Discharge Summary and indicate if the condition was present on admission. ANSLEYD
[2017-06-26] MEDS: PRENATAL VITAMIN PO SCH (11:16)
[2017-06-26] MEDS: FEOSOL PO SCH (11:16)
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
[2017-06-26] MEDS: PROzac PO SCH (21:07)
[2017-06-27] MEDS: PERCOCET 5/325 PO PRN ×5 (02:26→20:52)
[2017-06-27] MEDS: MOTRIN PO PRN (02:26)
[2017-06-27] MEDS: MILK OF MAGNESIA PO SCH ×2 (03:00→14:11)
--- NOTE | 2017-06-27 09:26 | Progress Note ---
Assessment and Plan A/P POD#5 IUFD, Repeat csec, severe depression Patient has been seen by myself socially Patient has been having high days and low days On POD#3 patient stated that she was sad and " wish she never came to this hospital. I wish I went to [place] to have my baby" On POD#3 patient stated " I remember you said if I needed anything. Could you donate to cremation cost? My reply was yes and gave 200 dollars" On POD#4 patient stated that "I am not mad at you Dr. Simmons" Duane mentioned " I dont blame you, you did everything you could do. I have a problem with high risk clinic" " Patient grandmother stated" Your doctors hands were tied , looks like your doctor did the best that she could do" On POD#5 patient had been seen by psych who discovered drug abuse and previous psych issues. The patient mentioned she wanted to kill herself. I discussed that she can have more children as her tubes were not tied and she needed to be around for another and for her there child. Duane sent text " could you not come and visit Fatmata" : it set her back to the beginning" I responded that I had to make rounds as this was not a social visit and will have partenre continue her care Post op 1. Depression- will continue to follow recommnedations from psych 2. clinically stable physically/post-op)- inciison healing well., ambulating well, pain tolerated, on regular diet had BM and flaus 3. HTN - will start labetolol 100 mg po bid 4. upon discharge f/u in 1 week for incision check and BP check Subjective - Subjective Date of service: 06/27/17 Principal diagnosis: s/p IUFD at 38 wks, s/p repeat section Patient reports: appetite normal, voiding normally, pain well controlled, flatus , bowel movement, ambulating normally : Objective - Vital Signs Latest vital signs: Vital Signs Temp Pulse Resp BP 06/26/17 21:13 98.8 F 81 18 154/92 06/26/17 16:45 98.5 F 78 18 150/81 06/26/17 13:08 98.1 F 86 18 145/82 Intake and Output 06/26/17 06/27/17 06/27/17 22:59 06:59 14:59 Other: # Voids Indwelling Catheter 1 Void 1 # Bowel Movements 1 - Exam Breasts: Present: normal Cardiovascular: Present: Regular rate, Normal S1 Lungs: Present: Clear to auscultation, Normal air movement Abdomen: Present: normal appearance, soft, normal bowel sounds Vulva: both: normal Uterus: Present: normal, firm, fundal height below umbilicus. Absent: bogginess , tenderness Extremities: Present: normal Deep Tendon Reflex Grade: Normal +2 Incision: Present: normal, dry, intact
[2017-06-27] MEDS: NORMODYNE PO SCH ×2 (11:09→20:50)
[2017-06-27] MEDS: PROzac PO SCH (11:10)
[2017-06-27] MEDS: FEOSOL PO SCH (11:10)
[2017-06-27] MEDS: PRENATAL VITAMIN PO SCH (11:10)
[2017-06-27] MEDS: AMBIEN PO PRN (20:56)
[2017-06-28] MEDS: MILK OF MAGNESIA PO SCH (00:42)
[2017-06-28] MEDS: PERCOCET 5/325 PO PRN ×5 (00:44→20:28)
[2017-06-28] MEDS: PRENATAL VITAMIN PO SCH (10:59)
[2017-06-28] MEDS: FEOSOL PO SCH (10:59)
[2017-06-28] MEDS: NORMODYNE PO SCH ×2 (10:59→21:41)
[2017-06-28] MEDS: PROzac PO SCH (11:00)
--- NOTE | 2017-06-28 13:17 | Progress Note ---
Assessment and Plan O: VSS Af A: Stable POD# 5 Repeat C/S Demise Depression Inappropriate Grieving P: D/C home Transfer to inpatient care at [facility] Subjective - Subjective Date of service: 06/28/17 Principal diagnosis: s/p IUFD at 38 wks, s/p repeat section Patient reports: appetite normal, voiding normally, pain well controlled, flatus , ambulating normally, other (hearing voices, attempting to breastfeed during the night, withdrawal) [place]: other ( demis) Objective - Vital Signs Latest vital signs: Vital Signs Temp Pulse Resp BP 06/28/17 11:16 20 06/28/17 10:59 88 164/88 06/28/17 06:19 98.7 F 80 18 146/88 06/27/17 23:24 98.2 F 84 18 139/76 06/27/17 20:50 77 176/77 06/27/17 20:48 99.1 F 77 18 176/77 06/27/17 16:36 98.7 F 73 18 146/76 06/27/17 13:17 98.1 F 84 20 154/84 Intake and Output 06/27/17 06/28/17 06/28/17 22:59 06:59 14:59 Intake Total 1260 680 360 Balance 1260 680 360 Intake: Oral 1260 680 360 Other: Total, Intake Amount 1260 680 120 # Voids Void 4 4 1 # Bowel Movements 0 1 - Exam Breasts: Present: deferred Abdomen: Present: normal appearance, soft. Absent: distention, tenderness Uterus: Present: normal, fundal height below umbilicus Extremities: Present: normal Incision: Present: normal, dry, intact
--- NOTE | 2017-06-28 13:27 | Discharge Summary ---
Providers - Providers Date of Admission: 06/22/17 23:49 Date of discharge: 06/28/17 Attending physician: VIOLETA BERUMEN 06/26/17 01:42 Consult to Mental Health [CONS] Routine Reason For Exam: pt states she wants to kill self Place consult to:: [phone] Notified:: yes Phone number called:: [phone] Was contact made?: No Time called:: 01:38 06/26/17 12:44 Consult to Case Management [CONS] Routine Services Needed at Discharge: Pipe Washer Notified:: yes Phone number called:: [phone] Was contact made?: Yes If yes, spoke with:: zaria Time called:: 12:46 Comment:: please see regarding IUFD at 38 weeks Primary care physician: VIOLETA BERUMEN Hospitalization Reason for admission: IUFD, IUP at term Delivery: Procedure: repeat low transverse Episiotomy: none Incision: normal, dry, intact Other procedures: none Discharge diagnosis: IUP at term delivered, intrapartum demise baby: male (Demise) Condition at discharge: Good Disposition: DC-01 TO HOME OR SELFCARE Plan - Discharge Medications Prescriptions: Docusate Sodium [Colace] 100 mg PO BID PRN #60 capsule PRN Reason: Constipation Ferrous Sulfate [Feosol 325 MG tab] 325 mg PO BID #60 tablet FLUoxetine [PROzac] 20 mg PO QDAY #30 capsule Ibuprofen [Motrin] 800 mg PO Q8HR PRN #30 tablet PRN Reason: Pain oxyCODONE /ACETAMINOPHEN [Percocet 5/325] 1 tab PO Q6HR PRN #30 tablet PRN Reason: Pain Sulfamethoxazole/Trimethoprim [Bactrim DS TAB] 1 each PO BID #14 tablet - Provider Discharge Summary Activity: routine, no sex for 6 weeks, no heavy lifting 4 weeks, no strenuous exercise Diet: routine Instructions: routine Additional instructions: [] Smoking cessation referral if applicable(refer to patient education folder for contact #) [] Refer to [facility]'s [facility] Booklet Call your doctor immediately for: * Fever > 100.5 * Heavy vaginal bleeding ( >1 pad per hour) * Severe persistent headache * Shortness of breath * Reddened, hot, painful area to leg or breast * Drainage or odor from incision. * Keep incision clean and dry at all times and follow doctor's instructions regarding bathing/showering - Follow up plan Follow up: VIOLETA BERUMEN MD [Primary Care Provider] - 7 Days
--- NOTE | 2017-06-28 14:21 | Progress Note ---
Subjective - Reason for Consult Consult date: 06/28/17 Reason for consult: Psychiatry Follow-up - Chief Complaint Chief complaint: "I am happy" Patient is a 36 year old who presents at 38.4 week with decreased movement. Today patient is cooperative, emotional, but delusional during the assessment. She stated that she tried to physically breast feed her "baby" last night. She stated that her "baby" is alive and she felt him in her arms. The patient think the bed sheets is her (delusional). Her boyfriend confirmed the patient's behavior during our conversation. Also, she stated that she heard the "baby" crying throughout the night. She does endorse sleep disturbance but denies a poor appetite. She was not able to confirm or deny SI's when asked. She denies HI's and VH's. She denies any side effects Prozac. Mental Status Exam - Vital signs Last Vital Signs Temp 98.7 F 06/28/17 06:19 Pulse 88 06/28/17 10:59 Resp 20 06/28/17 11:16 BP 164/88 06/28/17 10:59 Pulse Ox 100 06/23/17 11:33 - Exam Narrative exam: MSE: Appearance: cooperative, emotional Behavior: regular eye contact Speech: low rate and tone Mood: "okay" sad, withdrawn Affect: labile Thought Process: circumstantial Thought Content: denies HI's and AVH's, cannot confirm or deny SI's. delusional Motor Activity: lying in bed Cognition: A/Ox 3 Insight: limited Judgment: limited Assessment and Plan Impression: MDD severe type. Substance Use DO (marijuana). Today patient is cooperative, emotional, but delusional during the assessment. Patient experiencing psychosis. Patient is less engaging than previous assessment 2016. Recommendation/Plan: Continue 1013 with placement to [facility] (pending a bed). Continue Prozac 20 mg PO daily for depression and start Seroquel 200 mg PO HS for psyhosis. Discussed possible suicidality/medication induced lis with patient reference Prozac. Discussed possible metabolic side effects of Seroquel with patient.
[2017-06-28] MEDS: MOTRIN PO PRN (20:27)
[2017-06-28 21:52] VITALS: BP 140/70
== END 2017-06-28 23:04 | DRG 765 ==
LOC: TRG 22:48 → LD 23:49 → OB 06-23 16:33
PROVIDERS: ADMIT Obstetrics & Gynecology; ATTEND Obstetrics & Gynecology
PROC: 10D00Z1 Extraction of Products of Conception, Low, Open Approach (ICD-10-PCS; principal; 2017-06-23)
DX: O36.4XX0 Maternal care for intrauterine death, not applicable or unspecified (principal); O13.4 Gestational [pregnancy-induced] hypertension without significant proteinuria, complicating childbirth; O34.13 Maternal care for benign tumor of corpus uteri, third trimester; D25.9 Leiomyoma of uterus, unspecified; O99.89 Other specified diseases and conditions complicating pregnancy, childbirth and the puerperium; N73.6 Female pelvic peritoneal adhesions (postinfective); O34.211 Maternal care for low transverse scar from previous cesarean delivery; Z3A.38 38 weeks gestation of pregnancy; Z37.1 Single stillbirth; O90.81 Anemia of the puerperium; D64.9 Anemia, unspecified; F31.9 Bipolar disorder, unspecified; F53 Mental and behavioral disorders associated with the puerperium, not elsewhere classified; O99.345 Other mental disorders complicating the puerperium
CPT/HCPCS: 36415; 76816; 80307; 81001; 82565; 83615; 84450; 84460; 84550; 85014; 85018; 85027; 86850; 86900; 86901; 88307; J0690; J1885; J2250; J2270; J2370; J2405; J2590; J2765; J7120; J7121